=== PATIENT | male | born 1980 ===

== ENCOUNTER 2024-07-05 02:25 | Outpatient (CLI) | payer BC, SELFPAY ==
--- NOTE | 2024-07-05 16:15 | DI.RAD_ITS ---
Exam(s) XR KNEE LT 3V AP,LAT,SLIME EXAM: XR KNEE LT 3V AP,LAT,SLIME CLINICAL HISTORY: has trouble coming down stairs,lt knee pain,m25.562. TECHNIQUE: 2D digital imaging was performed. COMPARISON: CR XR KNEE RT 3V AP,LAT,SLIME from 07/05/2024 FINDINGS: 3 views No evidence of fracture but there is a small joint effusion noted. No significant narrowing of the m edial lateral compartments and no marginal osteophytes off these compartments. Patellofemoral compar tment appears unremarkable on the lateral view. There is no enthesophyte on the superior aspect of the patella, as is present on the opposite side. There is, however, enthesophyte from the mid anterior patella pointing distally towards the patellar ligament which is similar to the opposite side. Bone density normal. No osseous lesions. IMPRESSION: Minimal osseous findings. Small joint effusion noted. DATA REPOSITORY: RADIATION DOSE DELIVERED:
--- NOTE | 2024-07-05 16:15 | DI.RAD_ITS ---
Exam(s) XR KNEE RT 3V AP,LAT,SLIME EXAM: XR KNEE RT 3V AP,LAT,SLIME CLINICAL HISTORY: has trouble coming down stairs,rt knee pain, m25.561. TECHNIQUE: 2D digital imaging was performed. COMPARISON: CR XR KNEE LT 3V AP,LAT,SLIME from 07/05/2024 FINDINGS: 3 views There is no evidence of fracture. There does appear to be a small-moderate size joint effusion. No significant joint space narrowing nor osteophytes. There is some degenerative changes in the patello femoral compartment. No significant osseous lesions. Enthesophyte noted at the quadriceps insertion on the anterosuperior aspect of the patella. Another enthesophyte is also noted off the anterior as pect of the patella at the uppermost patellar ligament level. IMPRESSION: No acute osseous findings. Other findings as above including small joint effusion. DATA REPOSITORY: RADIATION DOSE DELIVERED:
== END 2024-07-05 02:45 ==
PROVIDERS: PCP Nurse Practitioner Family; Visit Provider Nurse Practitioner Family
DX: M25.561 Pain in right knee (principal); M25.562 Pain in left knee
CPT/HCPCS: 73562

== ENCOUNTER 2024-08-25 14:40 | Outpatient (REF) | payer BC, SELFPAY ==
--- NOTE | 2024-08-25 14:45 | DI.RAD_ITS ---
Exam(s) XR FOOT LT COMPLETE EXAM: XR FOOT LT COMPLETE CLINICAL HISTORY: evaluate fx. TECHNIQUE: 2D digital imaging was performed. COMPARISON: No exams were available for comparison FINDINGS: 3 views There is no evidence of acute fracture or diastasis of the Lisfranc joint. Accessory ossicle noted o n the medial aspect of the foot adjacent to the navicular tuberosity. This is consistent with a sesa moid bone within the distal tibialis posterior tendon. There are no accessory ossicles on the latera l aspect of the foot. Prominent inferior calcaneal spur is noted as is an enthesophyte on the circular head saw operator ior calcaneus Achilles insertion site. On the lateral aspect of the base of the 5th metatarsal there is an exostoses noted which is probably related to the attachment site of the Peroni is brevis tendons. This does not have the appearance o f an acute fracture. IMPRESSION: Findings as above but no evidence of acute fracture in the foot. DATA REPOSITORY: RADIATION DOSE DELIVERED:
--- NOTE | 2024-08-25 14:45 | DI.RAD_ITS ---
Exam(s) XR ANKLE LT COMPLETE EXAM: XR ANKLE LT COMPLETE CLINICAL HISTORY: evaluate fx. TECHNIQUE: 2D digital imaging was performed. COMPARISON: No exams were available for comparison FINDINGS: 3 views There is significant soft tissue swelling over the lateral aspect of the ankle but no evidence of fra cture nor widening of the ankle mortise. Talar dome unremarkable. Prominent inferior calcaneal spur is noted. Also enthesophyte at the posterior calcaneus Achilles insertion site. No evidence of osseous tarsal coalition. No obvious degenerative changes. IMPRESSION: No acute osseous findings in the ankle. DATA REPOSITORY: RADIATION DOSE DELIVERED:
--- NOTE | 2024-08-25 15:47 | DI.VRAD_ITS ---
PROCEDURE INFORMATION: Exam: XR Left Foot Exam date and time: 08/25/2024 2:59 PM Age: 44 years old Clinical indication: Pain; Foot; Left; Patient HX: Eval FX TECHNIQUE: Imaging protocol: Radiologic exam of the left foot. Views: 3 or more views. COMPARISON: CR XR KNEE LT 3V AP,LAT,SLIME 07/05/2024 4:04 PM FINDINGS: Bones/joints: Normal. Soft tissues: Normal. IMPRESSION: No evidence for fracture. Dictated and Authenticated by: Marcelle Grant MD. Ordering:RENETTA Cruz MD
--- NOTE | 2024-08-25 15:52 | DI.VRAD_ITS ---
PROCEDURE INFORMATION: Exam: XR Left Ankle Exam date and time: 08/25/2024 3:01 PM Age: 44 years old Clinical indication: Pain; Ankle; Left; Patient HX: Eval FX TECHNIQUE: Imaging protocol: Radiologic exam of the left ankle. Views: 3 or more views. COMPARISON: CR XR FOOT LT COMPLETE 08/25/2024 2:59 PM FINDINGS: Bones/joints: There is soft tissue swelling about the lateral malleolus. There is a small ankle effusion. Bone density is appropriate. Bony alignment is anatomic. No evidence for fracture. Soft tissues: See Bones/joints finding. IMPRESSION: Soft tissue swelling lateral malleolus. Probable ankle effusion. No fracture. Dictated and Authenticated by: Marcelle Grant MD. Ordering:RENETTA Cruz MD
== END 2024-08-25 15:00 ==
LOC: DI 14:40
PROVIDERS: PCP Nurse Practitioner Family; Visit Provider Nurse Practitioner Family
DX: M25.571 Pain in right ankle and joints of right foot; M25.572 Pain in left ankle and joints of left foot
CPT/HCPCS: 73610; 73630

== ENCOUNTER 2024-10-22 11:44 | Outpatient (CLI) | payer BC, SELFPAY ==
[2024-10-22 11:51] LABS: ALT 47 U/L (16-63); AST 19 U/L (15-37); Albumin 3.8 g/dL (3.4-5.0); Alkaline Phosphatase 115 U/L (46-116); Anion Gap 2.9 mmol/L (3-11); BUN 8 mg/dL (7-18); Bilirubin, Total 0.66 mg/dL (0.2-1.0); CO2 38.1 mmol/L (21.0-32.0); CREATININE 1.1 mg/dL (0.70-1.30); Calcium 9.6 mg/dL (8.5-10.1); Calculated LDL 145 mg/dL (<100); Chloride 103 mmol/L (98-107); Cholesterol 220 mg/dL (<200); Estimated GFR 84.37 (mL/min/1.73m2); Glucose 213 mg/dL (74-106); HDL Cholesterol 59 mg/dL (40-60); Sodium 144 mmol/L (136-145); Total Protein 8.3 g/dL (6.4-8.2); Triglyceride 83 mg/dL (<150)
== END 2024-10-22 11:45 | disposition home or self-care (01) ==
LOC: LBO 11:45
PROVIDERS: PCP Nurse Practitioner Family; Visit Provider Nurse Practitioner Family
DX: Z13.220 Encounter for screening for lipoid disorders (principal)
CPT/HCPCS: 36415; 80053; 80061

== ENCOUNTER 2024-11-05 14:34 | Outpatient (CLI) | payer BC, SELFPAY ==
--- NOTE | 2024-11-05 12:30 | DI.MRI_ITS ---
Exam(s) MR LOWER JOINT LT WO EXAM: MR LOWER JOINT LT WO CLINICAL HISTORY: continues to have activity-limiting pain S93.402A SPRAIN LIGAMENT LT ANKLE TECHNIQUE: Multiplanar multisequence MRI was performed without intravenous contrast. COMPARISON: CR,XR XR ANKLE LT COMPLETE from 08/25/2024 CR,XR XR FOOT LT COMPLETE from 08/25/2024 FINDINGS: The examination is limited due to patient motion artifact. BONES/JOINTS: No evidence of an acute fracture. There is mild marrow edema seen in the medial aspect of the talus. There is a plantar calcaneal spur. There is an accessory navicular present. The pos terior tibialis tendon, at least partially inserts upon this accessory bone. The talar dome is millicent h. The ankle mortise is maintained. There is a small joint effusion. LIGAMENTS: There is mild thickening and intermediate signal seen in the anterior tibial fibular ligam ent. The anterior talofibular ligament is heterogeneous it appears to be discontinuous. The deltoid ligament is intact. The syndesmosis is unremarkable. Sinus tarsi is normal. MUSCULOTENDINOUS STRUCTURES: Achilles tendon: Unremarkable. Plantar fascia: Unremarkable. Anterior Extensor tendons: Unremarkable. Posterior Tibialis: Unremarkable. Flexor Digitorum longus: Unremarkable. Flexor Hallucis longus: Unremarkable. Peroneus longus: Unremarkable. Peroneus brevis:Unremarkable. SOFT TISSUES: There is mild edema seen in the soft tissues around the lateral ankle. OTHER FINDINGS: None. IMPRESSION: 1. Heterogeneous and discontinuous anterior talofibular ligament consistent with at least a partial t ear. 2. Mild thickening and intermediate signal seen in the anterior tibiofibular ligament consistent with a sprain versus partial tear. 3. Small joint effusion. 4. Mild marrow edema in the medial talus. No evidence of a fracture. 5. No evidence of a tendon tear. 6. Mild edema in the soft tissues around the lateral ankle. DATA REPOSITORY:
== END 2024-11-05 14:54 ==
PROVIDERS: PCP Nurse Practitioner Family; Visit Provider Nurse Practitioner Family
DX: S93.492A Sprain of other ligament of left ankle, initial encounter (principal); X58.XXXA Exposure to other specified factors, initial encounter
CPT/HCPCS: 73721

== ENCOUNTER 2025-02-26 21:50 | Outpatient (REF) | payer BC, SELFPAY ==
[2025-02-26 22:02] LABS: MCH 26.9 pg (27.0-33.0); MCHC 31.4 % (32.0-36.0); MCV 86 fL (80-95); MPV 9.8 fL (8.0-11.0); Platelet Count 260 10^3/uL (130-400); RBC 5.94 10^6/uL (4.36-5.78); RDW-SD 43.8 fL; WBC 8.31 10^3/uL (4.4-10.8)
[2025-02-26 22:20] LABS: TSH (W/Ref FT4) 1.95 uIU/mL (0.36-3.74)
== END 2025-02-26 21:51 | disposition home or self-care (01) ==
LOC: LBN 21:50
PROVIDERS: PCP Nurse Practitioner Family; Visit Provider Nurse Practitioner Family
DX: R53.83 Other fatigue (principal)
CPT/HCPCS: 85027; 84443